=== PATIENT | female | born 1985 | race Hispanic/Latino ===

== ENCOUNTER 2019-02-05 09:11 | Outpatient (CLI) | payer MEDICAID ==
--- NOTE | 2019-02-05 09:56 | ULT ---
Exam: Pelvic ultrasound including Transabdominal, And Vascular Duplex with color and spectral Doppler imag ing: HISTORY: IUD check COMPARISON: None FINDINGS: IUD noted within the endometrial cavity of the body and fundus region. The uterus is 9.6 x 4.6 x 5.9 cm Endometrial thickness:Within normal limits. Right ovary:3.0 x 2.2 x 2.8 cm Left ovary:2.9 x 2.2 x 2.9 cm No abscess or significant abnormal fluid collection. Vascular duplex examination demonstrates no evidence for ovarian torsion IMPRESSION: IUD in place. No other acute process.
== END 2019-02-05 09:12 | disposition home or self-care (01) ==
LOC: SCSULT 09:11
PROVIDERS: ATTEND Nurse Practitioner Women's Health
DX: Z30.431 Encounter for routine checking of intrauterine contraceptive device (principal)
CPT/HCPCS: 76856; 93976

== ENCOUNTER 2020-07-27 18:00 | Outpatient (CLI) | payer OTHER | END 2020-07-27 18:01 | disposition home or self-care (01) | LOC: SLEEPLAB 18:00 | PROVIDERS: ATTEND Student in an Organized Health Care Education/Training Program | DX: G47.33 Obstructive sleep apnea (adult) (pediatric) (principal); G47.10 Hypersomnia, unspecified; R53.83 Other fatigue; G31.84 Mild cognitive impairment of uncertain or unknown etiology; R06.83 Snoring; G47.00 Insomnia, unspecified; J35.1 Hypertrophy of tonsils | CPT/HCPCS: 95806 ==

== ENCOUNTER 2020-09-30 10:44 | Outpatient (CLI) | payer OTHER ==
[2020-09-30 13:28] LABS: BHCG - Serum Negative (NEGATIVE); Pregs Control Background? CLEAR/WHITE (CLR/WHITE); Pregs Control Bar Appear? YES (CONTROL BAR)
[2020-10-01 01:47] LABS: SARS-CoV-2 PCR by NAA Not Detected (NotDetected)
== END 2020-09-30 10:45 | disposition home or self-care (01) ==
LOC: LABBT 10:44
PROVIDERS: ATTEND Student in an Organized Health Care Education/Training Program
DX: Z01.812 Encounter for preprocedural laboratory examination (principal); J30.9 Allergic rhinitis, unspecified; J34.2 Deviated nasal septum; J34.3 Hypertrophy of nasal turbinates; G47.30 Sleep apnea, unspecified; Z20.822 Contact with and (suspected) exposure to COVID-19
CPT/HCPCS: 84703; 85014; 87635; U0003; U0005

== ENCOUNTER 2020-10-05 06:02 | Day surgery (SDC) | payer OTHER ==
[2020-10-04 09:49] VITALS: BMI 37.9
[2020-10-05] MEDS ORDERED: AFRIN NASAL MIST 15 ML BOT ONE ×2 (06:29→06:41)
[2020-10-05] MEDS ORDERED: Bacitracin Zinc Ointment 30 gm TUBE ONE (06:41)
[2020-10-05] MEDS ORDERED: Lidocaine 1% w/Epinephrine 1:100K 20 ML VIAL ONE (06:41)
[2020-10-05] MEDS ORDERED: Morphine 4 MG/ML VIAL ONE (06:50)
[2020-10-05] MEDS ORDERED: Lidocaine 4% Topical Sol 50 ML BOT ONE (06:50)
[2020-10-05] MEDS ORDERED: Fentanyl 250 MCG/5 ML VIAL ONE (06:50)
[2020-10-05] MEDS ORDERED: Scopolamine 1.5 mg/72 hour Patch ONE (07:06)
[2020-10-05] MEDS ORDERED: Midazolam HCl 2 mg/2 ml Vial ONE (07:11)
[2020-10-05] MEDS ORDERED: Acetaminophen 500 MG TAB ONE (07:11)
[2020-10-05] MEDS ORDERED: Propofol 500 MG/50 ML VIAL ONE (07:12)
[2020-10-05] MEDS ORDERED: Rocuronium Bromide 10 MG/ML (10ML VIAL) ONE (07:29)
[2020-10-05] MEDS ORDERED: ePHEDrine Sulfate 50 MG/10 ML VIAL ONE (07:29)
[2020-10-05] MEDS ORDERED: Lidocaine 1% PF 5 ML VIAL ONE (07:29)
[2020-10-05] MEDS ORDERED: Ondansetron PF 4 MG/2 ML Vial ONE ×2 (07:29→09:58)
[2020-10-05] MEDS ORDERED: Dexamethasone 20 MG/5 ML VIAL ONE (07:29)
[2020-10-05] MEDS ORDERED: PROPOFOL 200 MG/20 ML VIAL ONE (07:29)
[2020-10-05] MEDS ORDERED: Fentanyl 100 MCG/2 ML VIAL ONE (09:58)
[2020-10-05] MEDS ORDERED: Promethazine HCl 25 MG/ML VIAL ONE (10:15)
== END 2020-10-05 12:42 | disposition home or self-care (01) ==
LOC: SDC 06:02
PROVIDERS: ATTEND Student in an Organized Health Care Education/Training Program
PROC: 09BL8ZZ Excision of Nasal Turbinate, Via Natural or Artificial Opening Endoscopic (ICD-10-PCS; principal; 2020-10-05)
PROC: 099 Ear, Nose, Sinus, Drainage (ICD-10-PCS; principal; 2020-10-05)
PROC: 0CTPXZZ Resection of Tonsils, External Approach (ICD-10-PCS; principal; 2020-10-05)
DX: J35.01 Chronic tonsillitis (principal); J34.2 Deviated nasal septum; J34.3 Hypertrophy of nasal turbinates; J34.89 Other specified disorders of nose and nasal sinuses; J30.9 Allergic rhinitis, unspecified; G47.30 Sleep apnea, unspecified
CPT/HCPCS: 88304; J0690; J1100; J2250; J2270; J2405; J2550; J2704; J3010